=== PATIENT | male | born 1940 | race Caucasian/White ===

== ENCOUNTER 2019-02-15 11:51 | Emergency (ER) | payer OTHER ==
[2019-02-15] MEDS ORDERED: HYDROCODONE/APAP 10/325 TAB ONE (12:34)
--- NOTE | 2019-02-15 13:14 | RAD REPORT ---
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 Moderate soft tissue swelling is seen along the ulnar aspect of the wrist along the dorsal aspect of the wrist. The bones are diffusely osteopenic. An acute fracture is not suspected.
--- NOTE | 2019-02-15 13:15 | ER ---
Nurse's Notes [facility] Name: Yaakov Bales Age: 78 yrs Sex: Male : 1940 Arrival Date: 02/15/2019 Time: 11:52 Bed 13 Private MD: Unknown, Unknown Diagnosis: Pain in left wrist Presentation: 02/15 11:55 Presenting complaint: Patient states: left hand pain and swelling that began 1 week ago aa5 and has gotten worse over the last 2 days ago. 11:55 Transition of care: patient was not received from another setting of care. Onset of aa5 symptoms was 2018. Risk Assessment: Do you want to hurt yourself or someone else? Patient reports no desire to harm self or others. Initial Sepsis Screen: Does the patient meet any 2 criteria? No. Patient's initial sepsis screen is negative. Does the patient have a suspected source of infection? No. Patient's initial sepsis screen is negative. Care prior to arrival: None. 11:55 Method Of Arrival: Ambulatory aa5 11:55 Acuity: TORY 4 aa5 Historical: - Allergies: 11:55 Tape; aa5 - PMHx: 11:55 CVA; Myocardial infarction; Hypertension; aa5 - PSHx: 11:55 Left hand nerve sx; heart stents x 6; Watchman implant; aa5 - Immunization history:: Adult Immunizations up to date. - Ebola Screening: : No symptoms or risks identified at this time. - Social history:: Smoking status: Patient/guardian denies using tobacco. Screenin:27 Abuse screen: Denies threats or abuse. Denies injuries from another. Nutritional rv screening: No deficits noted. Tuberculosis screening: No symptoms or risk factors identified. Fall Risk None identified. Assessment: 12:25 General: Appears in no apparent distress. comfortable, Behavior is calm, cooperative. rv Pain: Complains of pain in left wrist. Neuro: Level of Consciousness is awake, alert, obeys commands, Oriented to person, place, time, situation. Cardiovascular: Capillary refill < 3 seconds. Respiratory: Airway is patent. GI: No signs and/or symptoms were reported involving the gastrointestinal system. : No signs and/or symptoms were reported regarding the genitourinary system. EENT: No signs and/or symptoms were reported regarding the EENT system. Derm: Skin is intact. Musculoskeletal: No signs and/or symptoms reported regarding the musculoskeletal system. Vital Signs: 12:00 BP 119 / 83; Pulse 85; Resp 16 S; Temp 98.1(O); Pulse Ox 98% on R/A; Weight 117.93 kg aa5 (R); Height 5 ft. 11 in. (180.34 cm) (R); Pain 11/23; 12:00 Body Mass Index 36.26 (117.93 kg, 180.34 cm) aa5 ED Course: 11:52 Patient arrived in ED. ag5 11:53 Unknown, Unknown is Private Physician. ag5 11:54 Arm band placed on Patient placed in an exam room, on a stretcher. aa5 11:56 Kay Anne FNP-C [facility]. snw 11:56 Clifton Mast MD is Attending Physician. snw 12:06 Triage completed. aa5 12:27 Patient has correct armband on for positive identification. Call light in reach. Side rv rails up X 1. Adult w/ patient. Pulse ox on. NIBP on. 13:02 X-ray completed. Portable x-ray completed in exam room. Patient tolerated procedure jb2 well. 13:04 Wrist Left (3 View) XRAY In Process Unspecified. EDMS 13:06 Max Magana, MEGHANA is Primary Nurse. rv 13:13 David Villa MD is Referral Physician. snw 13:27 No provider procedures requiring assistance completed. Patient did not have IV access rv during this emergency room visit. Administered Medications: 12:24 Drug: Jordan 10 mg-325 mg 1 tabs Route: PO; rv 13:07 Follow up: Response: Pain is decreased rv Outcome: 13:14 Discharge ordered by . snw 13:27 Discharged to home ambulatory. rv 13:27 Condition: good 13:27 Discharge instructions given to patient, family, Instructed on discharge instructions, follow up and referral plans. medication usage, Demonstrated understanding of instructions, follow-up care, medications, splint care, Prescriptions given X 1. 13:28 Patient left the ED. rv 13:32 Patient left the ED. snw Signatures: Dispatcher [employer] EDMS Kay Anne FNP-C MANAGER RESOURCE-Csnw Sonny Hernandez jb2 Catherine Gao RN RN aa5 Max Magana, RN RN rv Doni, Helen ag5
--- NOTE | 2019-02-15 13:15 | EDPHYS ---
Physician Documentation [facility] Name: Yaakov Bales Age: 78 yrs Sex: Male : 1940 Arrival Date: 02/15/2019 Time: 11:52 Bed 13 Private MD: Unknown, Unknown ED Physician Clifton Mast HPI: 02/15 13:08 This 78 yrs old Male presents to ER via Ambulatory with complaints of Wrist snw Pain, Hand Swelling. 13:08 The patient or guardian reports pain, swelling, tenderness. The complaints affect the snw left wrist diffusely. Context: The problem was sustained at home, resulted from an unknown cause. Onset: The symptoms/episode began/occurred suddenly, 2 day(s) ago, and became worse today, and became persistent. Associated signs and symptoms: Pertinent negatives: cyanosis distally, decreased sensation distally, fever, tingling distally. It is unknown whether or not the patient has had similar symptoms in the past. It is unknown whether or not the patient has recently seen a physician. no recent injury. Historical: - Allergies: 11:55 Tape; aa5 - PMHx: 11:55 CVA; Myocardial infarction; Hypertension; aa5 - PSHx: 11:55 Left hand nerve sx; heart stents x 6; Watchman implant; aa5 - Immunization history:: Adult Immunizations up to date. - Ebola Screening: : No symptoms or risks identified at this time. - Social history:: Smoking status: Patient/guardian denies using tobacco. ROS: 13:07 Constitutional: Negative for fever, chills, and weight loss, Eyes: Negative for injury, snw pain, redness, and discharge, ENT: Negative for injury, pain, and discharge, Neck: Negative for injury, pain, and swelling, Cardiovascular: Negative for chest pain, palpitations, and edema, Respiratory: Negative for shortness of breath, cough, wheezing, and pleuritic chest pain, Abdomen/GI: Negative for abdominal pain, nausea, vomiting, diarrhea, and constipation, Back: Negative for injury and pain, : Negative for injury, bleeding, discharge, and swelling, Skin: Negative for injury, rash, and discoloration, Neuro: Negative for headache, weakness, numbness, tingling, and seizure. 13:07 MS/extremity: Positive for injury or acute deformity, decreased range of motion, pain, swelling, of the lateral aspect of left hand, palmar aspect of distal phalanx of left thumb, palmar aspect of proximal phalanx of left thumb, palm of left hand and palmar aspect of left wrist. Exam: 13:05 Constitutional: This is a well developed, well nourished patient who is awake, alert, snw and in no acute distress. Head/Face: Normocephalic, atraumatic. Eyes: Pupils equal round and reactive to light, extra-ocular motions intact. Lids and lashes normal. Conjunctiva and sclera are non-icteric and not injected. Cornea within normal limits. Periorbital areas with no swelling, redness, or edema. ENT: Nares patent. No nasal discharge, no septal abnormalities noted. Tympanic membranes are normal and external auditory canals are clear. Oropharynx with no redness, swelling, or masses, exudates, or evidence of obstruction, uvula midline. Mucous membranes moist. Neck: Trachea midline, no thyromegaly or masses palpated, and no cervical lymphadenopathy. Supple, full range of motion without nuchal rigidity, or vertebral point tenderness. No Meningismus. Chest/axilla: Normal chest wall appearance and motion. Nontender with no deformity. No lesions are appreciated. Cardiovascular: Regular rate and rhythm with a normal S1 and S2. No gallops, murmurs, or rubs. Normal PMI, no JVD. No pulse deficits. Respiratory: Lungs have equal breath sounds bilaterally, clear to auscultation and percussion. No rales, rhonchi or wheezes noted. No increased work of breathing, no retractions or nasal flaring. Abdomen/GI: Soft, non-tender, with normal bowel sounds. No distension or tympany. No guarding or rebound. No evidence of tenderness throughout. Back: No spinal tenderness. No costovertebral tenderness. Full range of motion. Skin: Warm, dry with normal turgor. Normal color with no rashes, no lesions, and no evidence of cellulitis. Neuro: Awake and alert, GCS 15, oriented to person, place, time, and situation. Cranial nerves II-XII grossly intact. Motor strength 5/5 in all extremities. Sensory grossly intact. Cerebellar exam normal. Normal gait. Psych: Awake, alert, with orientation to person, place and time. Behavior, mood, and affect are within normal limits. 13:05 Musculoskeletal/extremity: Extremities: grossly normal except: noted in the left lateral wrist: decreased ROM, swelling, tenderness, Circulation is intact in all extremities. Sensation intact. distant injury to left hand to 4th and 5th fingers, palm. Vital Signs: 12:00 BP 119 / 83; Pulse 85; Resp 16 S; Temp 98.1(O); Pulse Ox 98% on R/A; Weight 117.93 kg aa5 (R); Height 5 ft. 11 in. (180.34 cm) (R); Pain 11/23; 12:00 Body Mass Index 36.26 (117.93 kg, 180.34 cm) aa5 MDM: 11:56 Patient medically screened. snw 13:22 Data reviewed: vital signs, nurses notes. Data interpreted: Pulse oximetry: on room air snw is 98 %. Interpretation: normal. Counseling: I had a detailed discussion with the patient and/or guardian regarding: the historical points, exam findings, and any diagnostic results supporting the discharge/admit diagnosis, radiology results, the need for outpatient follow up, to return to the emergency department if symptoms worsen or persist or if there are any questions or concerns that arise at home. Special discussion: Based on the history and exam findings, there is no indication for further emergent testing or inpatient evaluation. I discussed with the patient/guardian the need to see the orthopedic surgeon for further evaluation of the symptoms. 02/15 12:02 Order name: Wrist Left (3 View) XRAY; Complete Time: 13:31 snw 02/15 13:05 Order name: Thumb Spica Splint; Complete Time: 13:09 snw Administered Medications: 12:24 Drug: [place] 10 mg-325 mg 1 tabs Route: PO; rv 13:07 Follow up: Response: Pain is decreased rv Disposition: 17:49 Co-signature as Attending Physician, Clifton Mast MD. rn Disposition: 02/15/19 13:14 Discharged to Home. Impression: Pain in left wrist. - Condition is Stable. - Discharge Instructions: Joint Pain, Arthritis, Cast or Splint Care, Adult, Wrist Pain, Wrist Splint, Cryotherapy, [id number], Heat Therapy. - Prescriptions for Tylenol- Codeine #3 300-30 mg Oral Tablet - take 2 tablets by ORAL route every 6 hours As needed; 15 tablet. tizanidine 2 mg Oral tablet - take 2 tablet by ORAL route every 6 hours as needed not to exceed 3 doses in 24 hours; 40 tablet. - Medication Reconciliation Form, Thank You Letter, Antibiotic Education, Prescription Opioid Use form. - Follow up: David Villa MD; When: 1 week; Reason: Recheck today's complaints, Continuance of care. - Problem is an acute exacerbation. - Symptoms are unchanged. Signatures: Dispatcher [employer] EDMS Kay Anne, TALENT DEVELOPMENT MANAGER-C TALENT DEVELOPMENT MANAGER-Csnw Clifton Mast MD MD rn Catherine Gao RN RN aa5 Max Magana RN RN rv Corrections: (The following items were deleted from the chart) 13:28 13:14 02/15/2019 13:14 Discharged to Home. Impression: Pain in left wrist. Condition is rv Stable. Forms are Medication Reconciliation Form, Thank You Letter, Antibiotic Education, Prescription Opioid Use. Follow up: David Villa; When: 1 week; Reason: Recheck today's complaints, Continuance of care. Problem is an acute exacerbation. Symptoms are unchanged. snw 13:32 13:28 02/15/2019 13:14 Discharged to Home. Impression: Pain in left wrist. Condition is snw Stable. Discharge Instructions: Joint Pain, Arthritis, Cast or Splint Care, Adult, Wrist Pain, Wrist Splint, Cryotherapy, [id number], Heat Therapy. Prescriptions for Tylenol-Codeine #3 300-30 mg Oral Tablet - take 2 tablets by ORAL route every 6 hours As needed; 15 tablet. and Forms are Medication Reconciliation Form, Thank You Letter, Antibiotic Education, Prescription Opioid Use. Follow up: David Villa; When: 1 week; Reason: Recheck today's complaints, Continuance of care. Problem is an acute exacerbation. Symptoms are unchanged. rv
== END 2019-02-15 13:32 | disposition home or self-care (01) ==
LOC: ER 11:51
DX: M25.532 Pain in left wrist (principal); I10 Essential (primary) hypertension; I25.2 Old myocardial infarction; Z86.73 Personal history of transient ischemic attack (TIA), and cerebral infarction without residual deficits; Z91.048 Other nonmedicinal substance allergy status
CPT/HCPCS: 99284